=== PATIENT | female | born 1980 | race Caucasian/White ===

== ENCOUNTER 2019-07-27 18:49 | Emergency (ER) | payer OTHER ==
[~2019-07-27] VITALS: Ht 167.6 cm; Wt 86.2 kg
[2019-07-27] MEDS ORDERED: NORCO 5-325 TA1 EAC1 PO (19:44)
[2019-07-27 20:10] VITALS: BP 132/71
== END 2019-07-27 20:10 | disposition home or self-care (01) ==
LOC: M.ERS 18:49
DX: M75.101 Unspecified rotator cuff tear or rupture of right shoulder, not specified as traumatic (principal); M25.511 Pain in right shoulder; F17.210 Nicotine dependence, cigarettes, uncomplicated; Z88.2 Allergy status to sulfonamides